=== PATIENT | female | born 1975 | race Hispanic/Latino ===

== ENCOUNTER 2021-10-31 19:49 | Emergency (ER) | payer OTHER ==
[~2021-10-31] VITALS: Ht 162.6 cm; Wt 75.7 kg
[2021-10-31 20:44] LABS: BASOPHILS % (AUTO) 0.2 % (0.0-5.0); EOSINOPHILS % (AUTO) 2.3 % (0.0-8.0); HEMATOCRIT 39.8 % (36-48); LYMPHOCYTES % (AUTO) 21.8 % (21.0-51.0); MEAN CORPUSCULAR HEMOGLOBIN 29.7 pg (27.0-33.0); MEAN CORPUSCULAR HGB CONC 33.9 g/dL (32.0-36.0); MEAN CORPUSCULAR VOLUME 87.5 fL (79-99); NEUTROPHILS % (AUTO) 68.3 % (40.0-77.0); PLATELET COUNT (AUTO) 279 K/uL (130-400); RED BLOOD CELL COUNT(AUTO) 4.55 MIL/uL (4.00-5.50); RED CELL DISTRIBUTION WIDTH 12.4 % (11.0-15.5); WHITE BLOOD COUNT (AUTO) 8.1 K/uL (4.8-10.8)
[2021-10-31 20:57] LABS: CREATININE 0.8 mg/dL (0.5-1.5)
[2021-10-31 21:01] LABS: ALBUMIN 4.1 g/dL (3.5-5.0); BILIRUBIN,TOTAL 0.3 mg/dL (0.2-1.0); TOTAL PROTEIN, SERUM 8.6 g/dL (6.0-8.3)
[2021-11-01] MEDS ORDERED: ACETAMINOPHEN WITH CODEINE 1 TAB TAB PO ONE (00:30)
[2021-11-01] MEDS ORDERED: LIDOCAINE HCL 1% 20 ML VIAL INJ SCH (00:30)
[2021-11-01] MEDS ORDERED: CLINDAMYCIN 150 MG CAP PO ONE (00:30)
[2021-11-01] MEDS ORDERED: CLIN-141 PO (02:06)
[2021-11-01 02:20] VITALS: BP 142/86
== END 2021-11-01 02:30 | disposition home or self-care (01) ==
LOC: EDH 19:49
DX: L02.212 Cutaneous abscess of back [any part, except buttock and flank] (principal); Z79.2 Long term (current) use of antibiotics
CPT/HCPCS: 10060; 36415; 80053; 85025